=== PATIENT | female | born 1995 | race Caucasian/White ===

== ENCOUNTER 2016-10-06 20:46 | Emergency (ER) | payer BC ==
[~2016-10-06] VITALS: Ht 167.6 cm; Wt 73.9 kg
[2016-10-06 20:53] VITALS: BP 131/91; PULSE 106; RESP 20; TEMP 98.6; O2SAT 100
[2016-10-06] MEDS ORDERED: BIRTH CONTROL (21:01)
--- NOTE | 2016-10-06 21:13 | PD ---
HPI Chief Complaint: ENT Complaint Time Seen by Provider: 20:45 Travel History International Travel<30 days: No Contact w/Intl Traveler<30days: No Traveled to known affect area: No History of Present Illness HPI 21-year-old female presents to emergency department for evaluation of possible tonsillar stone on the right side. Patient reports she noticed the area after eating dinner this evening. She reports she noticed mild discomfort on the right side when she looked into the mere she noticed a small whitish/brownish colored discoloration of the right tonsil. She attempted Multiple times at home with a Q-tip failed to remove the stone but was unsuccessful so she presented here for evaluation. She denies sore throat, fever, chills, difficulty swallowing. Symptoms severity is mild. No exacerbating or alleviating factors. PFSH Past Medical History Medical History: Denies Significant Hx ?: Not LMP: 2 WEEKS AGO Social History Alcohol Use: No Tobacco Use: No Substance Use: No Allergies-Medications (Allergen,Severity, Reaction): Coded Allergies: No Known Allergies (Unverified , 10/06/16) Reported Meds & Prescriptions Reported Meds & Active Scripts Active Reported [ Control] Review of Systems Except as stated in HPI: all other systems reviewed are Neg General / Constitutional: No: Fever Eyes: No: Visual changes HENT: No: Headaches Cardiovascular: No: Chest Pain or Discomfort Respiratory: No: Shortness of Breath Gastrointestinal: No: Abdominal Pain Genitourinary: No: Dysuria Physical Exam Narrative GENERAL: Alert, well-appearing female SKIN: Focused skin assessment warm/dry. HEAD: Atraumatic. Normocephalic. EYES: Pupils equal and round. No scleral icterus. No injection or drainage. ENT: No nasal bleeding or discharge. Mucous membranes pink and moist. There appears to be a tonsillar stone within the right tonsil. There is no tonsillar enlargement or erythema or exudate. NECK: Trachea midline. No JVD. Data Data Last Documented VS Vital Signs Date Time Temp Pulse Resp B/P Pulse Ox O2 Delivery O2 Flow Rate FiO2 10/06/16 20:53 98.6 106 20 131/91 100 MDM Medical Decision Making Medical Screen Exam Complete: Yes Emergency Medical Condition: Yes Differential Diagnosis Tonsillar stones, tonsillitis, viral pharyngitis Narrative Course 21-year-old female since emergency department for evaluation of possible tonsillar stone on the right side. Patient reports she notes the area after eating dinner this evening. Multiple times at home with a Q-tip failed to remove the stone she presented here for evaluation. On exam patient has what appears to be a small tonsillar stone in the right tonsil. Several attempts with Q-tip attempted to remove the stone. Patient tolerated procedure well. Stone did not remove. Patient was instructed to do warm salt water's gargles several times per day follow up with ENT. She agrees to plan Diagnosis Primary Impression: Tonsil stone Referrals: Ear / Nose / Throat Specialist Additional Instructions: Do warm salt water gargle several times per day. Follow-up with your primary doctor or ENT. Return to emergency department if he developed new or worsening symptoms. Disposition: 01 DISCHARGE HOME Condition: Stable Rosetta Sandoval Oct 06, 2016 21:13
== END 2016-10-06 21:27 | disposition home or self-care (01) ==
LOC: PHEFT 20:46
DX: J35.8 Other chronic diseases of tonsils and adenoids (principal)
CPT/HCPCS: 99282